=== PATIENT | female | born 1960 | race Two or more races ===

== ENCOUNTER 2023-09-30 14:09 | Inpatient (IN) | payer MEDICAID, OTHER ==
[~2023-09-30] VITALS: Ht 170.2 cm; Wt 106.7 kg
[2023-09-30 15:35] LABS: Basophils # (auto) 0.1 10 ^3/uL (0-0.2); Basophils % (auto) 0.8 % (0.0-2.0); Eosinophils # (auto) 0.4 10 ^3/uL (0-0.8); Eosinophils % (auto) 3.1 % (0.0-7.0); Hematocrit 32.6 % (36.0-46.0); Hemoglobin 10.8 g/dL (12.2-16.2); Lymphocytes # (auto) 1.8 10 ^3/uL (0.4-5.4); Lymphocytes % (auto) 15.5 % (10.0-50.0); Mean Corpuscular Hemoglobin 29.6 pg (28.0-32.0); Mean Corpuscular Hgb Conc. 33.2 g/dL (32.0-36.0); Monocytes # (auto) 0.6 10 ^3/uL (0-1.3); Monocytes % (auto) 5.4 % (0.0-12.0); Neutrophils # (auto) 8.6 10 ^3/uL (1.6-8.6); Neutrophils % (auto) 75.2 % (37.0-80.0); Red Blood Cells 3.66 10^6/uL (4.0-5.20); Red Cell Distribution Width 13.9 % (11.8-14.3); White Blood Cell 11.4 10^3/uL (4.4-10.8)
[2023-09-30 16:08] LABS: Chloride 104 mmol/L (98-107); Potassium 3.8 mmol/L (3.5-5.1); Sodium 140 mmol/L (136-145)
[2023-09-30 16:09] LABS: Anion Gap 12 (5-15); Calcium 9.9 mg/dL (8.5-10.1); Carbon Dioxide 24 mmol/L (20-30)
[2023-09-30 16:14] LABS: BUN/Creatinine Ratio 11.5 (10.0-20.0); Blood Urea Nitrogen 57 mg/dL (9-23); Glucose 136 mg/dL (74-106)
[2023-09-30] MEDS: MECLIZINE HCL 25 MG TAB PO ONE (17:02)
[2023-09-30 17:14] LABS: Urine Bacteria None Seen /hpf (None Seen)
[2023-09-30] MEDS ORDERED: METO-158 PO (17:34)
[2023-09-30] MEDS ORDERED: TORS20TA19 PO (17:34)
[2023-09-30] MEDS ORDERED: ATOR40TA52 PO (17:34)
[2023-09-30] MEDS ORDERED: FAMO-12 PO (17:34)
[2023-09-30] MEDS ORDERED: LOSA-535 PO (17:34)
[2023-09-30] MEDS ORDERED: HYDR50TA47 PO (17:34)
[2023-09-30] MEDS ORDERED: ISO60SRT PO (17:34)
[2023-09-30] MEDS ORDERED: NIFE1TAB30 PO (17:34)
[2023-09-30] MEDS ORDERED: DEXTROSE (50%) 50ML SYRG IV PRN (17:45)
[2023-09-30] MEDS: TORSEMIDE 20 MG TAB PO SCH (18:00)
[2023-09-30 18:10] LABS: Urine Amorphous Crystal FEW /hpf (None Seen); Urine Blood Negative /uL (Negative); Urine Clarity Turbid (Clear); Urine Color Yellow (Yellow); Urine Mucus FEW (None Seen); Urine Protein, UAD TRACE (Negative); Urine Urobilinogen Normal (Negative); Urine WBC 7 /hpf (0 - 5); Urine pH 5.5 (5.0-9.0)
[2023-09-30 18:29] LABS: Triglycerides 252 mg/dL (< 150)
[2023-09-30 18:30] LABS: LDL Cholesterol 79 mg/dL (< 100)
[2023-09-30 18:31] LABS: Cholesterol 159 mg/dL (< 200); HDL Cholesterol 45 mg/dL (40-59)
[2023-09-30 20:30] VITALS: PULSE 82; RESP 16; O2SAT 98
[2023-09-30 21:00] VITALS: BP 139/66; PULSE 76; RESP 17; TEMP 98; O2SAT 96
[2023-09-30] MEDS: ACCU-CHEK COMFORT CURVE STRIP VI SCH (21:35)
[2023-09-30] MEDS: hydrALAZINE HCL 25 MG TAB PO SCH (21:35)
[2023-09-30] MEDS: InsuLIN REG 1unit/0.01ml Soln (100units/ml) SC SCH (21:36)
[2023-10-01] VITALS (8 sets, daily range): BP systolic 103–150; BP diastolic 58–72; PULSE 71–87; RESP 16–20; TEMP 97.7–98.7; O2SAT 94–98
[2023-10-01 07:04] LABS: Alanine Aminotransferase 10 U/L (7-40); Albumin 4.2 g/dL (3.2-4.8); Alkaline Phosphatase 82 U/L (46-116); Anion Gap 10 (5-15); Aspartate Aminotransferase < 8 U/L (13-40); BUN/Creatinine Ratio 12.7 (10.0-20.0); Blood Urea Nitrogen 63 mg/dL (9-23); Calcium 9.5 mg/dL (8.5-10.1); Carbon Dioxide 23 mmol/L (20-30); Chloride 108 mmol/L (98-107); Glucose 61 mg/dL (74-106); Potassium 3.5 mmol/L (3.5-5.1); Sodium 141 mmol/L (136-145)
[2023-10-01 07:05] LABS: Bilirubin, Total < 0.2 mg/dL (0.2-1.0); Total Protein 6.4 g/dL (5.7-8.2)
[2023-10-01 07:14] LABS: Basophils # (auto) 0.1 10 ^3/uL (0-0.2); Basophils % (auto) 0.7 % (0.0-2.0); Eosinophils # (auto) 0.5 10 ^3/uL (0-0.8); Eosinophils % (auto) 4.3 % (0.0-7.0); Hematocrit 30.4 % (36.0-46.0); Lymphocytes # (auto) 2.5 10 ^3/uL (0.4-5.4); Lymphocytes % (auto) 20.1 % (10.0-50.0); Mean Corpuscular Hemoglobin 29.6 pg (28.0-32.0); Mean Corpuscular Volume 89.6 fL (80.0-100.0); Monocytes # (auto) 0.9 10 ^3/uL (0-1.3); Monocytes % (auto) 6.9 % (0.0-12.0); Neutrophils # (auto) 8.3 10 ^3/uL (1.6-8.6); Nucleated Red Blood Cells % 0.1 %; Red Blood Cells 3.39 10^6/uL (4.0-5.20); Red Cell Distribution Width 13.7 % (11.8-14.3); White Blood Cell 12.2 10^3/uL (4.4-10.8)
[2023-10-01] MEDS: ISOSORBIDE MONONITRATE ER 60 MG TAB PO SCH (09:30)
[2023-10-01] MEDS: ATORVASTATIN 20 MG TAB PO SCH (09:30)
[2023-10-01] MEDS: FAMOTIDINE 20 MG TAB PO SCH (09:31)
[2023-10-01] MEDS ORDERED: NIFEdipine ER 30 MG TAB PO SCH (10:00)
[2023-10-01] MEDS ORDERED: LOSARTAN POTASSIUM 50 MG TAB PO SCH (10:00)
[2023-10-01] MEDS ORDERED: METOPROLOL TARTRATE 50 MG TAB PO SCH (10:00)
[2023-10-01 13:24] LABS: Uric Acid 10.7 mg/dL (3.1-7.8)
[2023-10-01 13:27] LABS: Phosphorus 4.6 mg/dL (2.4-5.1)
[2023-10-01] MEDS: PIPERACILLIN-TAZOB 3.375GM 100 ML IV ONE (18:45)
[2023-10-01] MEDS ORDERED: PIPERACILLIN-TAZOB 2.25GM 50 ML IV SCH (22:00)
[2023-10-02] VITALS (7 sets, daily range): BP systolic 106–165; BP diastolic 46–81; PULSE 71–99; RESP 16–20; TEMP 97.5–98.6; O2SAT 95–99
[2023-10-02] MEDS: PIPERACILLIN-TAZOB 3.375GM 100 ML IV SCH (06:09)
[2023-10-02 06:51] LABS: Erythrocyte Sedimentation Rate 39 mm/hr (0-20)
[2023-10-02 08:58] LABS: Basophils # (auto) 0.1 10 ^3/uL (0-0.2); Eosinophils # (auto) 0.5 10 ^3/uL (0-0.8); Eosinophils % (auto) 5.3 % (0.0-7.0); Hematocrit 28.7 % (36.0-46.0); Hemoglobin 9.8 g/dL (12.2-16.2); Lymphocytes # (auto) 2.1 10 ^3/uL (0.4-5.4); Mean Corpuscular Hemoglobin 30.4 pg (28.0-32.0); Mean Corpuscular Volume 89.5 fL (80.0-100.0); Monocytes # (auto) 0.7 10 ^3/uL (0-1.3); Monocytes % (auto) 7.1 % (0.0-12.0); Neutrophils # (auto) 6.3 10 ^3/uL (1.6-8.6); Neutrophils % (auto) 64.6 % (37.0-80.0); Red Blood Cells 3.21 10^6/uL (4.0-5.20); Red Cell Distribution Width 13.8 % (11.8-14.3); White Blood Cell 9.7 10^3/uL (4.4-10.8)
[2023-10-02 09:11] LABS: Chloride 106 mmol/L (98-107); Potassium 4.2 mmol/L (3.5-5.1); Sodium 139 mmol/L (136-145)
[2023-10-02 09:12] LABS: Anion Gap 12 (5-15); Carbon Dioxide 21 mmol/L (20-30)
[2023-10-02 09:13] LABS: Calcium 9.3 mg/dL (8.5-10.1)
[2023-10-02 09:17] LABS: BUN/Creatinine Ratio 12.8 (10.0-20.0); Blood Urea Nitrogen 58 mg/dL (9-23); Glucose 163 mg/dL (74-106)
[2023-10-03] VITALS (7 sets, daily range): BP systolic 94–182; BP diastolic 58–99; PULSE 82–134; RESP 16–20; TEMP 97.9–98.2; O2SAT 94–100
[2023-10-03] MEDS: ONDANSETRON HCL 4 MG/2 ML VIAL IV PRN (07:03)
[2023-10-03] MEDS: NIFEdipine ER 30 MG TAB PO ONE (11:21)
[2023-10-03] MEDS: diphenhdrAMINE HCL 25 MG CAP PO PRN (11:22)
[2023-10-03] MEDS: FUROSEMIDE 40 MG/4 ML VIAL IV ONE (11:24)
[2023-10-03] MEDS ORDERED: DEXTROSE (50%) 50ML SYRG IV PRN (11:30)
[2023-10-03] MEDS ORDERED: HYDROcodone-ACET 5/325MG TAB PO PRN (11:30)
[2023-10-03] MEDS: ACCU-CHEK COMFORT CURVE STRIP VI SCH (12:57)
[2023-10-03] MEDS: InsuLIN REG 1unit/0.01ml Soln (100units/ml) SC SCH ×2 (12:58→21:59)
[2023-10-03 14:40] LABS: Chloride 105 mmol/L (98-107); Potassium 4.2 mmol/L (3.5-5.1); Sodium 137 mmol/L (136-145)
[2023-10-03 14:41] LABS: Anion Gap 15 (5-15); Carbon Dioxide 17 mmol/L (20-30)
[2023-10-03 14:42] LABS: Calcium 10.7 mg/dL (8.7-10.4)
[2023-10-03 14:47] LABS: Blood Urea Nitrogen 49 mg/dL (9-23); Glucose 242 mg/dL (74-106)
[2023-10-04] VITALS (7 sets, daily range): BP systolic 104–140; BP diastolic 58–75; PULSE 80–118; RESP 16–20; TEMP 98–98.3; O2SAT 95–99
[2023-10-04] MEDS ORDERED: PERITONEAL DIALYSIS Soln 1.5% 2000ml IP ONE (01:00)
[2023-10-04] MEDS: NIFEdipine ER 30 MG TAB PO SCH (10:10)
[2023-10-04] MEDS: metroNIDAZOLE 500 MG TAB PO SCH (15:34)
[2023-10-05 05:00] VITALS: BP 110/51; PULSE 90; RESP 18; TEMP 98.1; O2SAT 95
[2023-10-05 08:00] VITALS: PULSE 89; RESP 18; O2SAT 95
[2023-10-05 09:10] VITALS: BP 133/67; PULSE 89; RESP 18; TEMP 98.1; O2SAT 95
[2023-10-05 09:11] VITALS: BP 136/65; PULSE 87
[2023-10-05 09:12] VITALS: BP 90/54; PULSE 113
[2023-10-05] MEDS ORDERED: METR-344 PO (09:53)
[2023-10-05] MEDS ORDERED: CEPH250C PO (09:53)
[2023-10-05 11:31] VITALS: BP 133/67; PULSE 89; RESP 18; TEMP 98.1; O2SAT 95
[2023-10-05] MEDS: SODIUM CHLORIDE 0.9% 1,000 ML IV SCH (13:15)
== END 2023-10-05 12:55 | disposition home or self-care (01) | DRG 204 ==
LOC: EDSEX 14:09 → EDBD 14:09 → ER 14:09 → TELE 17:24 → TELE-CENTR 20:30 → CENTRAL 10-02 22:38
PROVIDERS: ADMIT Registered Nurse; ATTEND Nurse Practitioner Acute Care
DX: I95.1 Orthostatic hypotension (principal); I12.0 Hypertensive chronic kidney disease with stage 5 chronic kidney disease or end stage renal disease; N18.6 End stage renal disease; E11.22 Type 2 diabetes mellitus with diabetic chronic kidney disease; D63.1 Anemia in chronic kidney disease; G90.8 Other disorders of autonomic nervous system; E21.3 Hyperparathyroidism, unspecified; E66.01 Morbid (severe) obesity due to excess calories; E78.5 Hyperlipidemia, unspecified; N39.0 Urinary tract infection, site not specified; I25.10 Atherosclerotic heart disease of native coronary artery without angina pectoris; R19.7 Diarrhea, unspecified; Z99.2 Dependence on renal dialysis; Z98.61 Coronary angioplasty status; Z68.36 Body mass index [BMI] 36.0-36.9, adult
CPT/HCPCS: 36415; 70450; 71045; 80048; 80053; 80061; 81001; 82962; 83036; 84100; 84443; 84550; 85025; 85652; 86141; 87040; 87045; 87086; 87205; 87427; 93005; G0378; J1815; J2405; J2543